=== PATIENT | female | born 1960 | race Caucasian/White ===

== ENCOUNTER → 2018-05-01 09:55 | Outpatient (REF) | payer BC, SELFPAY ==
[2018-05-03 11:12] LABS: Hepatitis C Ab w Rflx HCV PCR Negative (NEGAT)
== END ==
LOC: NCHCN 09:55
PROVIDERS: PCP Nurse Practitioner Family; Visit Provider Internal Medicine
DX: Z11.59 Encounter for screening for other viral diseases (principal)
CPT/HCPCS: 86803

== ENCOUNTER → 2018-05-16 01:32 | Outpatient (CLI) | payer BC, SELFPAY ==
--- NOTE | 2018-05-16 14:32 | DI.REPORT_ITS ---
SYMPTOMS/DIAGNOSIS: MID CERVICAL DISC DISORDER WITH RADICULOPATHY CERVICAL SPINE MRI: MRI examination of the cervical spine was performed according to the usual protocol. Images obtained through the posterior fossa are unremarkable. The spinal cord shows normal diameter and normal signal throughout. No bony central canal spinal stenosis. There may be mild right sided neural foraminal stenosis at C 5 - 6. Otherwise the neural foramina appear fairly well maintained. There is prominence of the disc osteophyte complex at C 5 - 6 and C 6 - 7 without evidence of impingement on the spinal cord or focal disc herniation. CONCLUSION: Question mild right sided neural foraminal narrowing at C 5 - 6. Prominence of disc osteophyte complex without specific evidence of impingement at C 5 - 6 and C 6 - 7.
== END ==
PROVIDERS: PCP Nurse Practitioner Family; Visit Provider Chiropractor
DX: M54.12 Radiculopathy, cervical region (principal); M25.78 Osteophyte, vertebrae; M47.22 Other spondylosis with radiculopathy, cervical region
CPT/HCPCS: 72141

== ENCOUNTER 2018-12-06 14:19 | Outpatient (REF) | payer BC, SELFPAY ==
[2018-12-06 21:17] LABS: Abs Immature Grans 0.01 k/cumm (0.0-0.09); Absolute Basophil Count 0.02 k/cumm (0.0-0.2); Absolute Eosinophil Count 0.13 k/cumm (0.0-0.7); Absolute Lymphocyte Count 2.66 k/cumm (1.2-3.4); Absolute Monocyte Count 0.82 k/cumm (0.11-0.7); Basophils % 0.2; Eosinophils % 1.6; HCT 46.4 % (36.0-46.0); Immature Grans % 0.1; Lymphocytes % 31.9; Mean Corp. HGB Concentration 32.3 g/dL (32.0-36.0); Mean Corpuscular Hemoglobin 29.6 pg (27.0-33.0); Mean Corpuscular Volume 91.7 fL (80-95); Mean Platelet Volume 10.5 fL (8.0-11.0); Monocytes % 9.8; Neutrophils % 56.4; Platelet Count 244 x1000/uL (130-400); RBC 5.06 m/cumm (4.00-5.20); White Blood Cell Count 8.34 k/cumm (4.4-10.8)
[2018-12-06 21:40] LABS: ALT 35 U/L (12-78); AST 24 U/L (15-37); Albumin 3.9 g/dL (3.4-5.0); Alkaline Phosphatase 135 U/L (46-116); Amylase 101 U/L (25-115); Anion Gap 7.2 mmol/L (3-11); BUN 17 mg/dL (7-18); Bilirubin, Total 0.2 mg/dL (0.2-1.0); CO2 29.8 mmol/L (21.0-32.0); CREATININE 0.77 mg/dL (0.55-1.02); Calcium 9.5 mg/dL (8.5-10.1); Chloride 103 mmol/L (98-107); Glucose 86 mg/dL (70-100); Lipase 214 U/L (73-393); Potassium 4.3 mmol/L (3.5-5.1); Sodium 140 mmol/L (136-145); Total Protein 7.2 g/dL (6.4-8.2)
== END 2018-12-06 14:39 ==
LOC: NCHCN 14:19
PROVIDERS: PCP Nurse Practitioner Family; Visit Provider Family Medicine
DX: R10.11 Right upper quadrant pain (principal)
CPT/HCPCS: 80053; 83690; 82150; 85025

== ENCOUNTER 2020-10-01 11:10 | Outpatient (REF) | payer BC, SELFPAY ==
[2020-10-01 13:50] LABS: TSH (W/Ref FT4) 1.81 uIU/mL (0.36-3.74)
== END 2020-10-01 11:30 ==
LOC: NCHCN 11:10
PROVIDERS: PCP Nurse Practitioner Family; Visit Provider Nurse Practitioner Family
DX: Z13.29 Encounter for screening for other suspected endocrine disorder (principal)
CPT/HCPCS: 84443

== ENCOUNTER 2020-11-03 12:09 | Outpatient (REF) | payer BC, SELFPAY ==
[2020-11-03 14:11] LABS: Anion Gap 7.8 mmol/L (3-11); BUN 14 mg/dL (7-18); CO2 29.2 mmol/L (21.0-32.0); CREATININE 0.9 mg/dL (0.55-1.02); Calcium 9.4 mg/dL (8.5-10.1); Calculated LDL 118 mg/dL (<100); Chloride 104 mmol/L (98-107); Cholesterol 197 mg/dL (<200); Glucose 102 mg/dL (74-106); HDL Cholesterol 60 mg/dL (40-60); Potassium 4.6 mmol/L (3.5-5.1); Sodium 141 mmol/L (136-145); Triglyceride 98 mg/dL (<150)
== END 2020-11-03 12:10 | disposition home or self-care (01) ==
LOC: NCHCN 12:09
PROVIDERS: PCP Nurse Practitioner Family; Visit Provider Internal Medicine
DX: R07.9 Chest pain, unspecified (principal); J44.9 Chronic obstructive pulmonary disease, unspecified; Z13.220 Encounter for screening for lipoid disorders
CPT/HCPCS: 80048; 80061

== ENCOUNTER 2021-04-27 08:44 | Outpatient (REF) | payer BC, SELFPAY ==
[2021-04-27 14:32] LABS: Glucose 105 mg/dL (74-106)
[2021-04-27 14:35] LABS: Hemoglobin A1C 5.8 % (<5.7)
== END 2021-04-27 08:45 | disposition home or self-care (01) ==
LOC: NCHCN 08:44
PROVIDERS: PCP Nurse Practitioner Family; Visit Provider Internal Medicine
DX: R73.9 Hyperglycemia, unspecified (principal)
CPT/HCPCS: 82947; 83036

== ENCOUNTER 2021-09-22 21:05 | Outpatient (REF) | payer BC, SELFPAY ==
[2021-09-24 11:43] LABS: COVID-19 RT-PCR UVMMC Result Negative (Negative)
== END 2021-09-22 21:06 | disposition home or self-care (01) ==
LOC: NCHCN 21:05
PROVIDERS: PCP Nurse Practitioner Family; Visit Provider Family Medicine
DX: Z20.822 Contact with and (suspected) exposure to COVID-19 (principal)
CPT/HCPCS: U0003

== ENCOUNTER 2021-11-03 09:23 | Outpatient (REF) | payer BC, SELFPAY ==
[2021-11-03 16:48] LABS: Hemoglobin A1C 5.7 % (<5.7)
[2021-11-03 16:53] LABS: ALT 30 U/L (14-59); AST 19 U/L (15-37); Albumin 3.6 g/dL (3.4-5.0); Alkaline Phosphatase 116 U/L (46-116); Anion Gap 7.4 mmol/L (3-11); BUN 19 mg/dL (7-18); Bilirubin, Total 0.3 mg/dL (0.2-1.0); CO2 28.6 mmol/L (21.0-32.0); CREATININE 0.9 mg/dL (0.55-1.02); Calculated LDL 114 mg/dL (<100); Chloride 107 mmol/L (98-107); Cholesterol 186 mg/dL (<200); Glucose 102 mg/dL (74-106); HDL Cholesterol 59 mg/dL (40-60); Potassium 3.8 mmol/L (3.5-5.1); Sodium 143 mmol/L (136-145); Total Protein 6.9 g/dL (6.4-8.2); Triglyceride 68 mg/dL (<150)
== END 2021-11-03 09:24 | disposition home or self-care (01) ==
LOC: NCHCN 09:23
PROVIDERS: PCP Nurse Practitioner Family; Visit Provider Internal Medicine
DX: E78.5 Hyperlipidemia, unspecified (principal); R73.03 Prediabetes
CPT/HCPCS: 80053; 80061; 83036

== ENCOUNTER 2022-11-10 13:31 | Outpatient (REF) | payer BC, SELFPAY ==
[2022-11-10 14:26] LABS: Hemoglobin A1C 5.6 % (<5.7)
[2022-11-10 14:33] LABS: Anion Gap 6.4 mmol/L (3-11); BUN 16 mg/dL (7-18); CO2 30.6 mmol/L (21.0-32.0); Calcium 9.5 mg/dL (8.5-10.1); Chloride 104 mmol/L (98-107); Glucose 101 mg/dL (74-106); Potassium 4.5 mmol/L (3.5-5.1); Sodium 141 mmol/L (136-145)
== END 2022-11-10 13:32 | disposition home or self-care (01) ==
LOC: NCHCN 13:31
PROVIDERS: PCP Nurse Practitioner Family; Visit Provider Internal Medicine
DX: R73.03 Prediabetes (principal); Z78.9 Other specified health status
CPT/HCPCS: 80048; 83036

== ENCOUNTER 2023-11-12 09:54 | Outpatient (REF) | payer BC, SELFPAY ==
[2023-11-12 15:26] LABS: Anion Gap 6.8 mmol/L (3-11); BUN 16 mg/dL (7-18); CO2 31.2 mmol/L (21.0-32.0); CREATININE 0.9 mg/dL (0.55-1.02); Calcium 9.8 mg/dL (8.5-10.1); Calculated LDL 64 mg/dL (<100); Chloride 106 mmol/L (98-107); Cholesterol 148 mg/dL (<200); Estimated GFR 71.39 (mL/min/1.73m2); Glucose 109 mg/dL (74-106); HDL Cholesterol 70 mg/dL (40-60); Potassium 4.7 mmol/L (3.5-5.1); Sodium 144 mmol/L (136-145); Triglyceride 70 mg/dL (<150)
== END 2023-11-12 09:55 | disposition home or self-care (01) ==
LOC: NCHCN 09:54
PROVIDERS: PCP Nurse Practitioner Family; Visit Provider Internal Medicine
DX: E78.5 Hyperlipidemia, unspecified (principal); I25.10 Atherosclerotic heart disease of native coronary artery without angina pectoris
CPT/HCPCS: 80048; 80061

== ENCOUNTER 2023-12-25 18:04 | Outpatient (REF) | payer BC, SELFPAY ==
[2023-12-25 20:52] LABS: Abs Immature Grans 0.02 10^3/uL (0.0-0.06); Absolute Basophil Count 0.04 10^3/uL (0.0-0.2); Absolute Eosinophil Count 0.07 10^3/uL (0.0-0.7); Absolute Lymphocyte Count 2.47 10^3/uL (1.2-3.4); Absolute Monocyte Count 0.88 10^3/uL (0.1-0.8); Absolute Neutrophil Count 4.47 10^3/uL (1.2-6.7); Basophils % 0.5; Eosinophils % 0.9; HCT 48.7 % (36.0-46.0); HGB 15.5 g/dL (11.2-15.7); Immature Grans % 0.3; Lymphocytes % 31.1; MCH 29.1 pg (27.0-33.0); MCHC 31.8 % (32.0-36.0); MCV 91 fL (80-95); MPV 9.9 fL (8.0-11.0); Monocytes % 11.1; Neutrophils % 56.1; Platelet Count 221 10^3/uL (130-400); RBC 5.33 10^6/uL (3.93-5.22); RDW 13.6 % (11.7-14.6); WBC 7.95 10^3/uL (4.4-10.8)
[2023-12-25 21:14] LABS: Iron 67 ug/dL (50-170); Total Iron Binding Capacity 284 ug/dL (250-450)
[2023-12-25 21:29] LABS: ALT 38 U/L (14-59); AST 39 U/L (15-37); Albumin 3.7 g/dL (3.4-5.0); Alkaline Phosphatase 102 U/L (46-116); Anion Gap 9.5 mmol/L (3-11); BUN 13 mg/dL (7-18); Bilirubin, Total 0.3 mg/dL (0.2-1.0); CO2 29.5 mmol/L (21.0-32.0); Calcium 10.4 mg/dL (8.5-10.1); Chloride 104 mmol/L (98-107); Estimated GFR 62.91 (mL/min/1.73m2); Ferritin 96 ng/mL (8-252); Folate > 20.0 ng/mL (8.6-20.0); Glucose 100 mg/dL (74-106); Sodium 143 mmol/L (136-145); TSH (W/Ref FT4) 1.57 uIU/mL (0.36-3.74); Total Protein 7.3 g/dL (6.4-8.2); Vitamin B12 1207 pg/mL (193-986)
[2023-12-25 21:30] LABS: Vitamin D 25 Total 56.6 ng/mL (30-100)
== END 2023-12-25 18:05 | disposition home or self-care (01) ==
LOC: NCHCN 18:04
PROVIDERS: PCP Nurse Practitioner Family; Visit Provider Physician Assistant
DX: R53.83 Other fatigue (principal)
CPT/HCPCS: 80053; 82306; 82607; 82728; 82746; 83540; 83550; 84443; 85025

== ENCOUNTER 2024-01-21 15:23 | Outpatient (REF) | payer BC, SELFPAY ==
[2024-01-21 21:42] LABS: Bacteria Negative HPF (Negative); C & S Indicated? C&S Done As Ordered; Casts Negative LPF (Negative); Crystals Negative HPF (Negative); Epithelial Cells Rare HPF (Negative); Mucus Negative (Negative); RBC 0-2 HPF (0-2); WBC Negative HPF (0-5)
[2024-01-21 22:00] LABS: COMMENT (LAB VIEW ONLY) 78.56 mg/dL; Microalb ug/mg Crea 86.6 ug/mg Cr
== END 2024-01-21 15:24 | disposition home or self-care (01) ==
LOC: NCHCN 15:23
PROVIDERS: PCP Nurse Practitioner Family; Visit Provider Internal Medicine
DX: R31.29 Other microscopic hematuria (principal)
CPT/HCPCS: 81015; 82043; 82570; 87086

== ENCOUNTER 2024-05-12 14:56 | Outpatient (REF) | payer BC, SELFPAY ==
[2024-05-12 16:09] LABS: HCT 48.8 % (36.0-46.0); MCH 29.7 pg (27.0-33.0); MCHC 32.8 % (32.0-36.0); MCV 91 fL (80-95); MPV 10.1 fL (8.0-11.0); Platelet Count 221 10^3/uL (130-400); RBC 5.38 10^6/uL (3.93-5.22); RDW 12.9 % (11.7-14.6); RDW-SD 42.9 fL; WBC 6.06 10^3/uL (4.4-10.8)
[2024-05-12 16:17] LABS: Glucose 103 mg/dL (74-106)
[2024-05-12 16:33] LABS: Hemoglobin A1C 5.8 % (<5.7)
== END 2024-05-12 14:57 | disposition home or self-care (01) ==
LOC: NCHCN 14:56
PROVIDERS: PCP Nurse Practitioner Family; Visit Provider Internal Medicine
DX: R73.03 Prediabetes (principal)
CPT/HCPCS: 82947; 85027; 83036

== ENCOUNTER 2024-05-19 12:30 | Outpatient (REF) | payer BC, SELFPAY ==
[2024-05-19 14:36] LABS: Bacteria Rare HPF (Negative); C & S Indicated? No; Crystals Mod Calcium Oxalate HPF (Negative); Epithelial Cells Rare HPF (Negative); Mucus Trace (Negative); WBC 0-2 HPF (0-5)
== END 2024-05-19 12:31 | disposition home or self-care (01) ==
LOC: NCHCN 12:30
PROVIDERS: PCP Nurse Practitioner Family; Visit Provider Internal Medicine
DX: R31.29 Other microscopic hematuria (principal)
CPT/HCPCS: 81015

== ENCOUNTER 2024-12-15 10:54 | Outpatient (REF) | payer MEDICARE, BC, SELFPAY ==
[2024-12-15 21:41] LABS: HCT 50.8 % (36.0-46.0); HGB 15.9 g/dL (11.2-15.7); MCH 29.3 pg (27.0-33.0); MCHC 31.3 % (32.0-36.0); MCV 94 fL (80-95); MPV 10.5 fL (8.0-11.0); Platelet Count 194 10^3/uL (130-400); RBC 5.43 10^6/uL (3.93-5.22); RDW 13.3 % (11.7-14.6); RDW-SD 45.9 fL; WBC 7.89 10^3/uL (4.4-10.8)
[2024-12-15 22:19] LABS: Bacteria Negative HPF (Negative); C & S Indicated? No; Crystals Negative HPF (Negative); Epithelial Cells Negative HPF (Negative); Mucus Negative (Negative); RBC 0-2 HPF (0-2); WBC Negative HPF (0-5)
[2024-12-15 22:40] LABS: Vitamin B12 1040 pg/mL (193-986)
[2024-12-15 22:59] LABS: Hemoglobin A1C 5.8 % (<5.7)
== END 2024-12-15 10:55 | disposition home or self-care (01) ==
LOC: NCHCN 10:54
PROVIDERS: PCP Nurse Practitioner Family; Visit Provider Internal Medicine
DX: E53.8 Deficiency of other specified B group vitamins (principal); R31.29 Other microscopic hematuria; D75.1 Secondary polycythemia; R73.03 Prediabetes
CPT/HCPCS: 85027; 81015; 82607; 83036

== ENCOUNTER 2025-02-18 10:28 | Outpatient (REF) | payer MEDICARE, BC, SELFPAY ==
[2025-02-18 14:31] LABS: Bacteria Rare HPF (Negative); C & S Indicated? No; Casts Negative LPF (Negative); Crystals Negative HPF (Negative); Epithelial Cells Rare HPF (Negative); Mucus Negative (Negative); WBC Negative HPF (0-5)
== END 2025-02-18 10:29 | disposition home or self-care (01) ==
LOC: NCHCN 10:28
PROVIDERS: PCP Nurse Practitioner Family; Visit Provider Internal Medicine
DX: R31.29 Other microscopic hematuria (principal)
CPT/HCPCS: 81015

== ENCOUNTER → 2025-02-26 09:01 | Outpatient (BNVA) | payer MEDICARE, BC, SELFPAY | PROVIDERS: PCP Internal Medicine; Referring Provider Internal Medicine; Visit Provider Nurse Practitioner Gerontology | DX: R31.29 Other microscopic hematuria (principal); F17.200 Nicotine dependence, unspecified, uncomplicated; N39.3 Stress incontinence (female) (male); Z87.442 Personal history of urinary calculi | CPT/HCPCS: 99205; 81003 ==

== ENCOUNTER 2025-02-26 09:52 | Outpatient (REF) | payer MEDICARE, BC, SELFPAY ==
[2025-02-26 13:14] LABS: Bilirubin Negative (Negative); Blood Small (Negative); Clarity Clear (Clear); Glucose Negative (Negative); Ketones Negative (Negative); Leukocyte Esterase Negative (Negative); Nitrite Negative (Negative); Urobilinogen 0.2 mg/dL (Up to 0.2)
[2025-02-26 13:22] LABS: Bacteria Rare HPF (Negative); C & S Indicated? No; Casts Negative LPF (Negative); Crystals Negative HPF (Negative); Epithelial Cells Rare HPF (Negative); Mucus Negative (Negative); WBC 0-2 HPF (0-5)
== END 2025-02-26 09:53 | disposition home or self-care (01) ==
LOC: LBN 09:52
PROVIDERS: PCP Internal Medicine; Visit Provider Nurse Practitioner Gerontology
DX: R31.29 Other microscopic hematuria (principal)
CPT/HCPCS: 81003; 81015

== ENCOUNTER 2025-06-17 14:57 | Outpatient (REF) | payer MEDICARE, BC, SELFPAY ==
[2025-06-17 14:47] LABS: HCT 50.8 % (36.0-46.0); HGB 16.2 g/dL (11.2-15.7); MCH 29.8 pg (27.0-33.0); MCHC 31.9 % (32.0-36.0); MCV 93 fL (80-95); MPV 9.9 fL (8.0-11.0); Platelet Count 261 10^3/uL (130-400); RBC 5.44 10^6/uL (3.93-5.22); RDW 13.4 % (11.7-14.6); RDW-SD 45.7 fL; WBC 5.53 10^3/uL (4.4-10.8)
[2025-06-17 15:18] LABS: Hemoglobin A1C 5.7 % (<5.7)
[2025-06-17 15:50] LABS: ALT 34 U/L (14-59); AST 24 U/L (15-37); Albumin 3.7 g/dL (3.4-5.0); Alkaline Phosphatase 130 U/L (46-116); Anion Gap 7.8 mmol/L (3-11); BUN 17 mg/dL (7-18); Bilirubin, Total 0.3 mg/dL (0.2-1.0); CO2 31.2 mmol/L (21.0-32.0); Calcium 9.5 mg/dL (8.5-10.1); Chloride 105 mmol/L (98-107); Estimated GFR 81.72 (mL/min/1.73m2); Glucose 102 mg/dL (74-106); Potassium 4.2 mmol/L (3.5-5.1); Sodium 144 mmol/L (136-145); Total Protein 7.0 g/dL (6.4-8.2); Vitamin B12 907 pg/mL (193-986)
[2025-06-17 15:53] LABS: Folate > 20.0 ng/mL (8.6-20.0)
== END 2025-06-17 14:58 | disposition home or self-care (01) ==
LOC: NCHCN 14:57
PROVIDERS: PCP Internal Medicine; Visit Provider Internal Medicine
DX: R73.03 Prediabetes (principal)
CPT/HCPCS: 80053; 85027; 82607; 82746; 83036